=== PATIENT | male | born 1995 | race Caucasian/White ===

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

== ENCOUNTER 2017-07-24 08:28 | Emergency (ER) | payer OTHER ==
[2017-07-24 08:42] VITALS: BP 124/78; PULSE 94; TEMP 98
--- NOTE | 2017-07-24 09:22 | PDOC ---
History of Present Illness - General Chief Complaint: Foreign Body (FB) Stated Complaint: FOREIGN OBJECT IN EYE Time Seen by Provider: 07/24/17 09:12 History Source: Patient Exam Limitations: No Limitations - History of Present Illness Initial Comments: 07/24/17 09:17 CHIEF COMPLAINT: Foreign body sensation to right eye, right nasal congestion and right facial pain HISTORY OF PRESENT ILLNESS: Patient is a 21-year-old male, no significant medical history currently on no medication presents for right eye foreign body sensation, increased nasal congestion and right facial pain which started when he woke up this morning. No pain prior to going to sleep. Denies any trauma. Denies any foreign body in eye. Denies headache. REVIEW OF SYSTEMS: GENERAL/CONSTITUTIONAL: No fever or chills. No weakness. No weight change. HEAD, EYES, EARS, NOSE AND THROAT: No change in vision. Drainage and irritation to right eye. No ear pain or discharge. No sore throat. Right nasal congestion RESPIRATORY: No cough, wheezing, or hemoptysis. SKIN : No rash or easy bruising. NEUROLOGIC: No headache, vertigo, loss of consciousness, or loss of sensation. HEMATOLOGIC/LYMPHATIC: No lymphadenopathy ALLERGIC/IMMUNOLOGIC: No hives or skin allergy. No latex allergy. PHYSICAL EXAM: GENERAL: The patient is awake, alert, and fully oriented, in no acute distress. HEAD: Normal with no signs of trauma. Right frontal sinus pressure EYES: Pupils equal, round and reactive to light, extraocular movements intact, sclera anicteric, conjunctiva not injected, after fluorescein staining, no corneal abrasion noted. ENT: Ears normal, right nares is inflamed, increased drainage, oropharynx clear without exudates. Moist mucous membranes. Right frontal facial pressure NECK: Normal range of motion, supple without lymphadenopathy, JVD, or masses. LUNGS: Breath sounds equal, clear to auscultation bilaterally. No wheezes, and no crackles. NEUROLOGICAL: Cranial nerves II through XII grossly intact. Normal speech, normal gait. SKIN: No erythema no facial edema. Warm, Dry, normal turgor, no rashes or lesions noted. Past History - Past Medical History Allergies/Adverse Reactions: Allergies Allergy/AdvReac Type Severity Reaction Status Date / Time No Known Allergies Allergy Verified 07/24/17 08:42 Home Medications: Ambulatory Orders Amox-Tr/K Cl [Augmentin - 875Mg Tablet] 1 tab PO BID #14 tablet 07/24/17 Fluticasone Prop 0.05% Nasal [Flonase -] 1 - 2 spray NS DAILY #1 spray.pump Polymyxin B Sulf/Trimethoprim [Polymyxin B-Tmp Eye Drops] 1 drop OD QID #1 bottle 07/24/17 COPD: No - Immunization History TDAP Vaccination: Yes Immunization Up to Date: Yes - Suicide/Smoking/Psychosocial Hx Smoking Status: No Smoking History: Current every day smoker Have you smoked in the past 12 months: Yes Number of Cigarettes Smoked Daily: 10 Information on smoking cessation initiated: Yes 'Breaking Loose' booklet given: 07/24/17 Hx Alcohol Use: No Drug/Substance Use Hx: No Substance Use Type: None *Physical Exam - Vital Signs Last Vital Signs Temp Pulse Resp BP Pulse Ox 98 F 94 H 18 124/78 100 07/24/17 08:40 07/24/17 08:40 07/24/17 08:40 07/24/17 08:40 07/24/17 08:40 Medical Decision Making - Medical Decision Making 07/24/17 09:19 A/P: Patient with no clinical signs of foreign body to right eye, there is right frontal sinus pressure, increased nasal congestion, clinical signs of a sinusitis. Will discharge on Augmentin, polymyxin and Flonase. Follow-up with ENT if symptoms persist in 2 days. *DC/Admit/Observation/Transfer Diagnosis at time of Disposition: Sinusitis Qualifiers: Sinusitis location: frontal Chronicity: acute Recurrence: non-recurrent Qualified Code(s): J01.10 - Acute frontal sinusitis, unspecified - Discharge Dispostion Disposition: HOME Condition at time of disposition: Stable Admit: No - Prescriptions Prescriptions: Amox-Tr/K Cl [Augmentin - 875Mg Tablet] 1 tab PO BID #14 tablet Fluticasone Prop 0.05% Nasal [Flonase -] 1 - 2 spray NS DAILY #1 spray.pump Polymyxin B Sulf/Trimethoprim [Polymyxin B-Tmp Eye Drops] 1 drop OD QID #1 bottle - Referrals Referrals: Anil Rangel MD [Staff Physician] - Saul Kent [Staff Physician] - - Patient Instructions Printed Discharge Instructions: DI for Sinusitis Additional Instructions: If eye pain persists in 2 days follow-up with Dr. Kent If any fever, increased pain, or any other concerns return immediately to ER - Post Discharge Activity Forms/Work/School Notes: Back to Work
[2017-07-24] MEDS ORDERED: IBUPROFEN 600 MG TABLET (FP) PO ONE ×2 (09:25)
== END 2017-07-24 09:30 | disposition home or self-care (01) ==
LOC: JERFT 08:28
DX: J01.10 Acute frontal sinusitis, unspecified (principal)
CPT/HCPCS: 99281-25

== ENCOUNTER 2018-08-08 02:16 | Emergency (ER) | payer OTHER ==
[2018-08-08] MEDS ORDERED: DIPHTH,PERTUSS(ACELL),TET 0.5 ML DISP.SYRIN IM ONE ×2 (02:51→04:02)
[2018-08-08 03:06] VITALS: BP 106/59; PULSE 62; TEMP 97.5; BMI 20.9
--- NOTE | 2018-08-08 03:33 | PDOC ---
*Physical Exam - Vital Signs Last Vital Signs Temp Pulse Resp BP Pulse Ox 97.5 F L 62 18 106/59 L 99 08/08/18 02:16 08/08/18 02:16 08/08/18 02:16 08/08/18 02:16 08/08/18 02:16 Medical Decision Making - Medical Decision Making 08/08/18 03:33 Patient seen by the advanced practice provider under my direct supervision. Ancillary testing reviewed as necessary. I agree with plan as outlined by the advanced practice provider. *DC/Admit/Observation/Transfer - Discharge Dispostion Condition at time of disposition: Fair - Referrals - Patient Instructions - Post Discharge Activity
--- NOTE | 2018-08-08 03:50 | PDOC ---
History of Present Illness - General Stated Complaint: INJURY,MOUTH Time Seen by Provider: 08/08/18 02:46 History Source: Patient Exam Limitations: No Limitations - History of Present Illness Initial Comments: 08/08/18 03:44 HISTORY OF PRESENT ILLNESS: 22-year-old male denies medical history presents emergency department for evaluation of lip laceration. 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 Patient was concerned as there is heavy bleeding. He denies any loss of consciousness. Patient is unsure of his last tetanus shot. No recent travel or sick contacts. PAST MEDICAL HISTORY: Denies past medical history SURGICAL HISTORY: Denies ALLERGIES: No known drug allergies REVIEW OF SYSTEMS General/Constitutional: Denies fever or chills. Denies weakness, weight change. HEENT: see HPI Cardiovascular: Denies chest pain or shortness of breath. Respiratory: Denies cough, wheezing, or hemoptysis. Gastrointestinal: Denies nausea, vomiting, diarrhea or constipation. Denies rectal bleeding. Genitourinary: Denies dysuria, frequency, or change in urination. Musculoskeletal: Denies joint or muscle swelling or pain. Denies neck or back pain. Skin and breasts: Denies rash or easy bruising. Neurologic: Denies headache, vertigo, loss of consciousness, or loss of sensation. Psychiatric: Denies depression or anxiety. Endocrine: Denies increased thirst. Denies abnormal weight change. Hematologic/Lymphatic: Denies anemia, easy bleeding, or history of blood clots. Allergic/Immunologic: Denies hives or skin allergy. Denies latex allergy. PHYSICAL EXAM General Appearance: Well-appearing, appropriately dressed. No apparent distress , no intoxication. HEENT: EOMI, PERRLA, normal ENT inspection, normal voice, TMs normal, pharynx normal. No conjunctival pallor. No photophobia, scleral icterus. No loose teeth. 4.5 cm deep flap laceration present to the buccal surface of the right sided lower lip. Bleeding is well controlled. Full articulation of the mandible without difficulty. 2 abrasions present to the dry vermilion surface of the right sided lower lip. Neck: Supple. Trachea midline. No tenderness, rigidity, carotid bruit, stridor , lymphadenopathy, or thyromegaly. Respiratory/Chest: Lungs CTAB. No shortness of breath, chest tenderness, respiratory distress, accessory muscle use. No crackles, rales, rhonchi, stridor , wheezing, dullness Cardiovascular: RRR. S1, S2. No JVD, murmur, bradycardia, tachycardia. Vascular Pulses: Dorsalis-Pedis (R): 2+, Dorsalis-Pedis (L): 2+ Gastrointestinal/Abdominal: Normal bowel sounds. Abdomen soft, non-distended. No tenderness or rebound tenderness. No organomegaly, pulsatile mass, guarding, hernia, hepatomegaly, splenomegaly. Lymphatic: No adenopathy, tenderness. Musculoskeletal/Extremities: Normal inspection. FROM of all extremities, normal capillary refill. Pelvis Stable. No CVA tenderness. No tenderness to extremities, pedal edema, swelling, erythema or deformity. Integumentary: Appropriate color, dry, warm. No cyanosis, erythema, jaundice or rash Neurologic: functional manager II-XII intact. Fully oriented, alert. Appropriate mood/affect. Motor strength 5/5. No appreciable EOM palsy, facial droop or sensory deficit. 08/08/18 03:59 Past History - Past Medical History Allergies/Adverse Reactions: Allergies Allergy/AdvReac Type Severity Reaction Status Date / Time No Known Allergies Allergy Verified 08/08/18 03:06 Home Medications: Ambulatory Orders Fluticasone Prop 0.05% Nasal [Flonase -] 1 - 2 spray NS DAILY #1 spray.pump Polymyxin B Sulf/Trimethoprim [Polymyxin B-Tmp Eye Drops] 1 drop OD QID #1 bottle 07/24/17 Amox-Tr/K Cl [Augmentin 875-125mg Tablet -] 1 tab PO BID #14 tablet 08/08/18 Chlorhexidine Gluconate [Peridex -] 15 ml MM PC #1 bottle 08/08/18 COPD: No - Immunization History TDAP Vaccination: Yes Immunization Up to Date: Yes - Suicide/Smoking/Psychosocial Hx Smoking Status: No Smoking History: Never smoked Have you smoked in the past 12 months: No Number of Cigarettes Smoked Daily: 10 Information on smoking cessation initiated: No 'Breaking Loose' booklet given: 07/24/17 Hx Alcohol Use: Yes Drug/Substance Use Hx: No Substance Use Type: None *Physical Exam - Vital Signs Last Vital Signs Temp Pulse Resp BP Pulse Ox 97.5 F L 62 18 106/59 L 99 04/04/19 02:16 08/08/18 02:16 08/08/18 02:16 08/08/18 02:16 08/08/18 02:16 Procedures - Consent Consent obtained: Verbal, From Patient - Laceration/Wound Repair Right Lip Wound Length: 2.6 to 5.0 cm Wound Explored: clean Wound's Depth, Shape: into muscle, flap Irrigated w/ Saline: Yes Betadine Prep: No Anesthesia: 1% Lidocaine Amount of Anesthetic (ccs): 2 (mental) Wound Debrided: minimal Wound Repaired With: Sutures Suture Size/Type: 5:0, other Number of Sutures: 4 (gut) Layer Closure: Yes Deep Layer Suture Size/Type: 4:0, other (monosorb) Number of Deep Layer Sutures: 2 Sterile Dressing Applied: No Splint Applied: No Sling Applied: No Progress: 08/08/18 03:47 pt tolerated well. Medical Decision Making - Medical Decision Making 08/08/18 03:48 A/P: 22-year-old male with laceration to the buccal surface of the lower lip 4.5 cm deep flap laceration to right buccal surface of the lower lip. Laceration is not through and through No neurosensory deficits No loose teeth 2 abrasions present to the outer vermilion surface of the right sided lower lip Full articulation of the mandible without difficulty. Laceration repair-see procedure note for details Boostrix Discharge home with prescription for Peridex *DC/Admit/Observation/Transfer Diagnosis at time of Disposition: Laceration of buccal mucosa Qualifiers: Encounter type: initial encounter Qualified Code(s): S01.512A - Laceration without foreign body of oral cavity, initial encounter - Discharge Dispostion Disposition: HOME Condition at time of disposition: Stable Decision to Admit order: No - Prescriptions Prescriptions: Amox-Tr/K Cl [Augmentin 875-125mg Tablet -] 1 tab PO BID #14 tablet Chlorhexidine Gluconate [Peridex -] 15 ml MM PC #1 bottle - Referrals - Patient Instructions Additional Instructions: Eat soft foods for 2-3 days. Rinse mouth with Peridex after eating, drinking or smoking. Avoid spicy or salty foods until the wound is fully healed. Do not use straws. Take Augmentin 875 mg twice a day for the next 7 days. Wound should heal rapidly within 3-5 days. Absorbable sutures were placed which may remain for up to 2 weeks. At that time you may remove using tweezers. Your tetanus shot has been updated today. Return to emergency department for worsening pain, fevers, discharge or drainage from the wounds, or for any other concerns. Thank you very much for choosing us to provide your emergent health care needs. - Post Discharge Activity Forms/Work/School Notes: Back to Work
== END 2018-08-08 04:45 | disposition home or self-care (01) ==
LOC: JER 02:16
PROC: 0CQ13ZZ Repair Lower Lip, Percutaneous Approach (ICD-10-PCS; principal; 2018-08-08)
PROC: 3E0234Z Introduction of Serum, Toxoid and Vaccine into Muscle, Percutaneous Approach (ICD-10-PCS; 2018-08-08)
DX: S01.511A Laceration without foreign body of lip, initial encounter (principal); S01.512A Laceration without foreign body of oral cavity, initial encounter; W22.8XXA Striking against or struck by other objects, initial encounter; Y93.89 Activity, other specified; Y92.89 Other specified places as the place of occurrence of the external cause; Y99.0 Civilian activity done for income or pay
CPT/HCPCS: 90715; 99282-25

== ENCOUNTER 2019-04-26 19:41 | Emergency (ER) | payer OTHER ==
[2019-04-26 19:53] VITALS: BP 167/71; PULSE 100; TEMP 98; BMI 19.5
[2019-04-26] MEDS ORDERED: TETANUS AND DIPHTHERIA TOXOID 0.5 ML DISP.SYRIN IM ONE (20:54)
[2019-04-26] MEDS ORDERED: IBUPROFEN 600 MG TABLET (FP) PO ONE ×2 (20:55→21:08)
--- NOTE | 2019-04-26 20:58 | PDOC ---
History of Present Illness - General Chief Complaint: Injury Stated Complaint: HAND INJURY History Source: Patient Exam Limitations: No Limitations - History of Present Illness Initial Comments: 04/26/19 20:55 Patient is a 23-year-old male with no past medical history here with complaints of left hand pain times few hours. States that he was drilling and drilled through his hand. States pain now 8/10 which is worse with extension of the fingers. Worst pain is over the middle finger metacarpal. Tetanus is unknown. PMD: Dr. Urbina PMHX: neg PSOCHX: ALL: NKDA GENERAL/CONSTITUTIONAL: [No fever or chills. No weakness. No weight change.] MUSCULOSKELETAL: [(+)joint or muscle swelling or pain. No neck or back pain.] SKIN AND BREASTS: [No rash or easy bruising.] ALLERGIC/IMMUNOLOGIC: [No hives or skin allergy. No latex allergy.] GENERAL: [The patient is awake, alert, and fully oriented, in mild painful distress.] EYES: [Pupils equal, round and reactive to light, extraocular movements intact, sclera anicteric, conjunctiva clear.] EXTREMITIES: [Decreased range of motion left hand to extension, (+) swelling and tenderness over the left 3rd and 4th knuckle. No clubbing or cyanosis. No cords, erythema, or tenderness.] NEUROLOGICAL: [Cranial nerves II through XII grossly intact. Normal speech, normal gait.] SKIN: [(+) ecchymosis over posterior aspect of the knuckles of third and fourth Past History - Past Medical History Allergies/Adverse Reactions: Allergies Allergy/AdvReac Type Severity Reaction Status Date / Time No Known Allergies Allergy Verified 04/26/19 19:53 Home Medications: Ambulatory Orders Fluticasone Prop 0.05% Nasal [Flonase -] 1 - 2 spray NS DAILY #1 spray.pump Polymyxin B Sulf/Trimethoprim [Polymyxin B-Tmp Eye Drops] 1 drop OD QID #1 bottle 07/24/17 Amox-Tr/K Cl [Augmentin 875-125mg Tablet -] 1 tab PO BID #14 tablet 08/08/18 Chlorhexidine Gluconate [Peridex -] 15 ml MM PC #1 bottle 08/08/18 Amoxicillin/Potassium Clav [Augmentin 875-125 Tablet] 1 each PO BID #14 tablet 04/26/19 COPD: No Other medical history: chronic back problems - Immunization History Td Vaccination: Yes TDAP Vaccination: Yes Immunization Up to Date: No - Psycho Social/Smoking Cessation Hx Smoking Status: No Smoking History: Current every day smoker Have you smoked in the past 12 months: No Number of Cigarettes Smoked Daily: 10 Information on smoking cessation initiated: No 'Breaking Loose' booklet given: 07/24/17 Hx Alcohol Use: Yes Drug/Substance Use Hx: No Substance Use Type: None *Physical Exam - Vital Signs Last Vital Signs Temp Pulse Resp BP Pulse Ox 98 F 100 H 18 167/71 99 04/26/19 19:48 04/26/19 19:48 04/26/19 19:48 04/26/19 19:48 04/26/19 19:48 ED Treatment Course - RADIOLOGY Radiology Studies Ordered: Category Date Time Status HAND- LEFT [RAD] Stat Radiology 04/26/19 20:54 Ordered Medical Decision Making - Medical Decision Making 04/26/19 20:55 Patient is a 23-year-old male with no past medical history here with complaints of left hand pain times few hours. States that he was drilling and drilled through his hand. States pain now 8/10 which is worse with extension of the fingers. Worst pain is over the middle finger metacarpal. Tetanus is unknown. Penetrating injury to the left hand X-ray left hand rule out foreign body bone involvement Tetanus vaccine Augmentin Sling I discussed the physical exam findings, ancillary test results and final diagnoses with the patient. I answered all of the patient's questions. The patient was satisfied with the care received and felt comfortable with the discharge plan and treatment plan. The Patient agrees to follow up with the primary care physician within 24-72 hours. Discharge - Discharge Information Problems reviewed: Yes Clinical Impression/Diagnosis: Puncture wound, hand Qualifiers: Encounter type: initial encounter Foreign body presence: without foreign body Laterality: left Qualified Code(s): S61.432A - Puncture wound without foreign body of left hand, initial encounter Condition: Stable Disposition: HOME - Additional Discharge Information Prescriptions: Amoxicillin/Potassium Clav [Augmentin 875-125 Tablet] 1 each PO BID #14 tablet - Follow up/Referral Referrals: Mayo Gale MD [Staff Physician] - - Patient Discharge Instructions Additional Instructions: Your Discharge Instructions: You must call primary care physician within 24 hours to arrange follow-up. Return to the Emergency Department with any new, persistent or worsening symptoms, for fever, chills, SOB, dizziness or any other concerning changes that may occur. Continue the antibiotics as prescribed. Watch for signs of infection which include redness, streaking, increased pain discharge from the wound. Keep the hand in a splint and in a sling until seen by orthopedist. - Post Discharge Activity
[2019-04-26] MEDS ORDERED: AMOX TR/POT CLAV 875MG/125MG TABLETS (FP) PO ONE (21:06)
[2019-04-26] MEDS ORDERED: LIDOCAINE HCL/PF 1% SDV 5ML VIAL ONE (21:17)
[2019-04-26] MEDS ORDERED: LIDOCAINE HCL 2% (20ML MULTI-DOSE VIAL) ONE (21:17)
[2019-04-26] MEDS ORDERED: LIDOCAINE HCL 1% PRESERVATIVE FREE - 30ML VIAL IJ ONE (21:18)
[2019-04-26] MEDS ORDERED: AMOX TR/POT CLAV 875MG/125MG TABLETS (FP) ONE (21:49)
== END 2019-04-26 22:12 | disposition home or self-care (01) ==
LOC: JERFT 19:41
PROC: 3E0234Z Introduction of Serum, Toxoid and Vaccine into Muscle, Percutaneous Approach (ICD-10-PCS; principal; 2019-04-26)
DX: S61.432A Puncture wound without foreign body of left hand, initial encounter (principal); W29.8XXA Contact with other powered hand tools and household machinery, initial encounter; W31.1XXA Contact with metalworking machines, initial encounter; Y93.89 Activity, other specified; Y92.89 Other specified places as the place of occurrence of the external cause; Y99.8 Other external cause status
CPT/HCPCS: 73130-TC-LT-FY; 99281-25

== ENCOUNTER 2019-08-11 00:47 | Emergency (ER) | payer OTHER | END 2019-08-11 02:44 | disposition home or self-care (01) | LOC: JER 00:47 | PROC: 09QKXZZ Repair Nasal Mucosa and Soft Tissue, External Approach (ICD-10-PCS; principal; 2019-08-11) | CPT/HCPCS: 99284-25 ==

== ENCOUNTER 2020-02-05 10:46 | Emergency (ER) | payer OTHER ==
[2020-02-05 10:55] VITALS: BP 126/63; PULSE 68; TEMP 98; BMI 220.4
[2020-02-05] MEDS ORDERED: TETRACAINE 0.5% HCL 0.6ML DROPPER.BOTTLE OS ONE (11:05)
[2020-02-05] MEDS ORDERED: FLUORESCEIN NA 1 EA STRIP OS ONE (11:05)
[2020-02-05] MEDS ORDERED: FLUORESCEIN NA 1 EA STRIP ONE (11:09)
--- NOTE | 2020-02-05 11:18 | PDOC ---
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 Patient reported going to [facility] urgent care in [place] and was advised to come to the emergency room as nothing was seen on exam and it was advised he might need imaging of the eye. Denies blurry vision or change in vision. Denies any other symptoms Is this a multiple visit Asthma Patient?: No Timing/Duration: 24 hours Past History - Medical History Allergies/Adverse Reactions: Allergies Allergy/AdvReac Type Severity Reaction Status Date / Time No Known Allergies Allergy Verified 02/05/20 10:47 Home Medications: Ambulatory Orders Fluticasone Prop 0.05% Nasal [Flonase -] 1 - 2 spray NS DAILY #1 spray.pump 07/24/17 Polymyxin B Sulf/Trimethoprim [Polymyxin B-Tmp Eye Drops] 1 drop OD QID #1 bottle 07/24/17 Amox-Tr/K Cl [Augmentin 875-125mg Tablet -] 1 tab PO BID #14 tablet 08/08/18 Chlorhexidine Gluconate [Peridex -] 15 ml MM PC #1 bottle 08/08/18 Amoxicillin/Potassium Clav [Augmentin 875-125 Tablet] 1 each PO BID #14 tablet 04/26/19 COPD: No - Immunization History Td Vaccination: Yes TDAP Vaccination: Yes Immunization Up to Date: No - Psycho-Social/Smoking History Smoking Status: No Smoking History: Current every day smoker Have you smoked in the past 12 months: Yes Number of Cigarettes Smoked Daily: 20 Information on smoking cessation initiated: Yes 'Breaking Loose' booklet given: 07/24/17 - Substance Abuse Hx (Audit-C & DAST Scrn) How often the patient has a drink containing alcohol: Monthly or less Number of drinks the patient has on a typical day: 1 or 2 How often the patient has six or more drinks on one occasion: Never Score: In Men: 4 or > Positive; In Women: 3 or > Positive: 1 Screen Result (Pos requires Nsg. Audit-10AR): Negative In the last yr the pt used illegal drug/Rx for NonMed reason: No Score: Yes response is considered Positive: 0 Screen Result (Positive result requires Nsg. DAST-10): Negative Review of Systems - Review of Systems Able to Perform ROS?: Yes Is the patient limited Guyanese proficient: No Constitutional: No: Chills, Fever, Malaise HEENTM: Yes: Symptoms Reported, Eye Pain (left eye pain). No: See HPI, Blurred Vision, Tearing, Recent change in vision, Double Vision, Cataracts, Ear Pain, Ocular Prothesis, Ear Discharge, Nose Pain, Nose Congestion, Tinnitus, Nose Bleeding, Hearing Loss, Throat Pain, Throat Swelling, Mouth Pain, Dental Problems, Difficulty Swallowing, Mouth Swelling, Other Respiratory: No: Symptoms reported, See HPI, Cough, Orthopnea, Shortness of Breath, SOB with Exertion, SOB at Rest, Stridor, Wheezing, Productive cough, Hemoptysis, Other Cardiac (ROS): No: Symptoms Reported, See HPI, Chest Pain, Edema, Irregular Heart Rate, Lightheadedness, Palpitations, Syncope, Chest Tightness, Other ABD/GI: No: Symptoms Reported, Nausea, Vomiting Integumentary: No: Symptoms Reported, See HPI, Erythema Neurological: No: Symptoms reported, Headache, Dizziness All Other Systems: Reviewed and Negative *Physical Exam - Vital Signs Last Vital Signs Temp Pulse Resp BP Pulse Ox 98 F 68 16 126/63 100 02/05/20 10:48 02/05/20 10:48 02/05/20 10:48 02/05/20 10:48 02/05/20 10:48 - Physical Exam 02/05/20 11:55 GENERAL: Well developed, well nourished. Awake and alert. No acute distress. HEENT: mild injected left conjunctival otherwise unremarkable exam. Pupil equal and reflective to light bilateral. Extraocular muscle intact. No foreign body seen on exam with fluorescein stain and tetracaine. Normal vision on visual acuity with 20/20 vision in bilateral eye. Normocephalic, atraumatic. No conjunctival pallor. Sclera are non-icteric. Moist mucous membranes. Oropharynx is clear. NECK: Supple. Full ROM. PULMONARY: No evidence of respiratory distress. MUSCULOSKELETAL Normal range of motion at all joints. SKIN: Warm and dry. Normal capillary refill. No swelling or ecchymosis or erythema to bilateral eyelids. NEUROLOGICAL: Alert, awake, appropriate. Gait is normal without ataxia. PSYCHIATRIC: Cooperative. Good eye contact. Appropriate mood General Appearance: Yes: Nourished, Appropriately Dressed. 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 Patient reported going to [facility] urgent care in [place] and was advised to come to the emergency room as nothing was seen on exam and it was advised he might need imaging of the eye. Denies blurry vision or change in vision. Denies any other symptoms Clinical exam significant for mild injected left conjunctival otherwise unremarkable exam. Pupil equal and reflective to light bilateral. Extraocular muscle intact. No foreign body seen on exam with fluorescein stain and tetracaine. Normal vision on visual acuity with 20/20 vision in bilateral eye. Left eye irrigated and eyewash station. Patient tolerated procedure well. Pat era report improvement of eye pain. Patient stable for discharge with ophthalmology follow-up and able to make a follow-up with Dr. Arturo Patrick in an hour and was advised patient to come to the ophthalmology office now to be seen. Patient stable for discharge and left department without complication Discharge - Discharge Information Problems reviewed: Yes Clinical Impression/Diagnosis: Foreign body accidentally entering eye and adnexa Condition: Stable Disposition: HOME - Admission No - Follow up/Referral Referrals: Fernando Brown [Staff Physician] - ( go to this visit [address] [address]) - Patient Discharge Instructions Patient Printed Discharge Instructions: DI for Corneal Foreign Body-Eye Additional Instructions: No foreign body was seen in left eye and there is no cut on the eye. Follow-up referred ophthalmology as instructed go to this visit [address] [address] - Post Discharge Activity
== END 2020-02-05 11:51 | disposition home or self-care (01) ==
LOC: JERFT 10:46 → JER 10:46 → JERFT 11:51
DX: T15.01XA Foreign body in cornea, right eye, initial encounter (principal)
CPT/HCPCS: 99284-25

== ENCOUNTER 2020-02-05 21:35 | Emergency (ER) | payer OTHER ==
[2020-02-05 21:40] VITALS: BP 112/52; PULSE 82; TEMP 97.8; BMI 22.9
[2020-02-05] MEDS ORDERED: TETRACAINE 0.5% HCL 0.6ML DROPPER.BOTTLE OS ONE (22:17)
[2020-02-05] MEDS ORDERED: TETRACAINE 0.5% OPHTH SOLN 2 ML BOTTLE ONE (22:19)
--- NOTE | 2020-02-05 22:49 | PDOC ---
History of Present Illness - General Chief Complaint: Eye Problem Stated Complaint: CONTACT LENS REMOVAL Time Seen by Provider: 02/05/20 21:41 History Source: Patient Exam Limitations: No Limitations Past History - Travel History Traveled outside of the country in the last 30 days: No Close contact w/someone who was outside of country & ill: No - Medical History Allergies/Adverse Reactions: Allergies Allergy/AdvReac Type Severity Reaction Status Date / Time No Known Allergies Allergy Verified 02/05/20 10:47 Home Medications: Ambulatory Orders Fluticasone Prop 0.05% Nasal [Flonase -] 1 - 2 spray NS DAILY #1 spray.pump 07/24/17 Polymyxin B Sulf/Trimethoprim [Polymyxin B-Tmp Eye Drops] 1 drop OD QID #1 bottle 07/24/17 Amox-Tr/K Cl [Augmentin 875-125mg Tablet -] 1 tab PO BID #14 tablet 08/08/18 Chlorhexidine Gluconate [Peridex -] 15 ml MM PC #1 bottle 08/08/18 Amoxicillin/Potassium Clav [Augmentin 875-125 Tablet] 1 each PO BID #14 tablet 04/26/19 COPD: No - Immunization History Td Vaccination: Yes TDAP Vaccination: Yes Immunization Up to Date: No - Psycho-Social/Smoking History Smoking Status: No Smoking History: Never smoked Have you smoked in the past 12 months: No Number of Cigarettes Smoked Daily: 20 'Breaking Loose' booklet given: 07/24/17 - Substance Abuse Hx (Audit-C & DAST Scrn) How often the patient has a drink containing alcohol: Never Score: In Men: 4 or > Positive; In Women: 3 or > Positive: 0 Screen Result (Pos requires Nsg. Audit-10AR): Negative In the last yr the pt used illegal drug/Rx for NonMed reason: No Score: Yes response is considered Positive: 0 Screen Result (Positive result requires Nsg. DAST-10): Negative Review of Systems - Review of Systems Able to Perform ROS?: Yes Comments:: 02/05/20 23:29 CONSTITUTIONAL: Absent: fever, chills, diaphoresis, generalized weakness, malaise, loss of appetite HEENT: Present: L eye pain Absent: rhinorrhea, nasal congestion, throat pain, throat swelling, difficulty swallowing, mouth swelling, ear pain, visual Changes SKIN: Absent: rash, itching, pallor NEUROLOGIC: Absent: headache, focal weakness or paresthesias, dizziness, unsteady gait, seizure, mental status changes, bladder or bowel incontinence PSYCHIATRIC: Absent: anxiety, depression, suicidal or homicidal ideation, hallucinations. Is the patient limited Greenlandic proficient: No *Physical Exam - Vital Signs Last Vital Signs Temp Pulse Resp BP Pulse Ox 97.8 F 82 19 112/52 L 98 02/05/20 21:37 02/05/20 21:37 02/05/20 21:37 02/05/20 21:37 02/05/20 21:37 - Physical Exam 02/05/20 23:30 GENERAL: The patient is awake, alert, and fully oriented, in no acute distress. HEAD: Normal with no signs of trauma. EYES: Left pupil dilated, minimally reactive. Contact in place over the left eye. R pupil round and reactive to light, extraocular movements intact, sclera anicteric, conjunctiva clear. EXTREMITIES: Normal range of motion, no edema. NEUROLOGICAL: Normal speech, normal gait. PSYCH: Normal mood, normal affect. SKIN: Warm, Dry, normal turgor, no rashes or lesions noted. ED Treatment Course - Medications Given in the ED: ED Medications Discontinued Medications Generic Name Dose Route Start Last Admin Trade Name Freq PRN Reason Stop Dose Admin Tetracaine HCl 1 drop 02/05/20 22:17 02/05/20 22:22 Tetravisc 0.5% Eye Drops - OS 02/05/20 22:18 1 drop ONCE ONE Administration Medical Decision Making - Medical Decision Making 02/05/20 23:31 Patient is a 24-year-old male who presents the ER with left eye pain. He was seen in this ER earlier today diagnosed with a corneal bridge and sent to ophthalmology. He states that they put a contact lens over his eye. He also states that it a full eye work-up including plain dilating drops in his eye. He states that he is unsure if he should sleep with the contact as he is worried it will get infected. He does note that he was given multiple drops including antibiotic drops. He is asking to have the contact removed. A/P: Eye pain Per patient request contact lens was removed. Patient states that his eye is now hurting more with the contact out is requesting to have it put back in. The lens was cleaned with normal saline and then placed back in the eye after receiving a tetracaine drop. Discharge to home home with ophthalmology tomorrow. Return precautions given I discussed the physical exam findings, ancillary test results and final diagnoses with the patient. I answered all of the patient's questions. The patient was satisfied with the care received and felt comfortable with the discharge plan and treatment plan. The Patient agrees to follow up with the primary care physician/specialist within 24-72 hours. Return precautions were given. Discharge - Discharge Information Problems reviewed: Yes Clinical Impression/Diagnosis: Eye pain Qualifiers: Laterality: left Qualified Code(s): H57.12 - Ocular pain, left eye Condition: Stable Disposition: HOME - Admission No - Follow up/Referral - Patient Discharge Instructions Additional Instructions: You can sleep with with that contact in. Use moisturizer in the contact when you wake up in the morning Use all the eye drops as previously prescribed. Follow up with your eye doctor tomorrow as planned. - Post Discharge Activity
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
== END 2020-02-05 22:27 | disposition home or self-care (01) ==
LOC: JER 21:35 → JERFT 21:35
DX: H57.12 Ocular pain, left eye (principal)
CPT/HCPCS: 99283-25

== ENCOUNTER 2021-11-08 16:58 | Emergency (ER) | payer OTHER ==
[2021-11-08] MEDS ORDERED: DIPHTH,PERTUSS(ACELL),TET 0.5 ML DISP.SYRIN IM ONE ×2 (17:07→17:55)
[2021-11-08] MEDS ORDERED: morphine CARPU-JECT 4 MG/1 ML DISP.SYRIN IVPUSH ONE (17:07)
[2021-11-08] MEDS ORDERED: morphine SULFATE 4 MG/ML VIAL IVPUSH ONE ×2 (17:07→17:21)
[2021-11-08] MEDS ORDERED: CEFAZOLIN 1 GM/D5W 1 GM/50 ML BAG IVPB ONE (17:07)
[2021-11-08] MEDS ORDERED: SODIUM CHLORIDE 0.9% 500 ML INFUS.BAG IV ONE (17:10)
[2021-11-08 17:22] VITALS: PULSE 99; BMI 19.3
[2021-11-08 17:47] LABS: BASO % 0.9 % (0-2.0); EOS % 1.7 % (0-4.5); HEMATOCRIT 43.5 % (35.4-49); HEMOGLOBIN 14.7 GM/dL (11.7-16.9); MCH 29.2 pg (25.7-33.7); MCHC 33.8 g/dl (32.0-35.9); MEAN CELL VOLUME 86.2 fl (80-96); MEAN PLT VOLUME 7.9 fl (7.5-11.1); MONO % 6.5 % (3.8-10.2); NEUT % 66.9 % (42.8-82.8); PLATELET COUNT 358 10^3/uL (134-434); RBC 5.05 M/mm3 (4.00-5.60); RDW 13.4 % (11.9-15.9); WHITE BLOOD COUNT 8.1 K/mm3 (4.0-10.0)
[2021-11-08 17:53] LABS: INR 1.01 (0.83-1.09); PROTHROMBIN TIME (PATIENT) 11.6 SEC (9.7-13.0)
[2021-11-08] MEDS ORDERED: ceFAZolin SODIUM 1 GM VIAL ONE (17:55)
[2021-11-08 17:56] LABS: ACTIVATED PTT 29.8 SECONDS (25.2-36.5)
[2021-11-08 18:11] LABS: CALCIUM 9.6 mg/dL (8.5-10.1)
[2021-11-08 18:12] LABS: ALBUMIN 4.7 g/dl (3.4-5.0); BLOOD UREA NITROGEN 12.6 mg/dL (7-18)
[2021-11-08 18:15] LABS: CREATININE 1.3 mg/dL (0.55-1.3)
[2021-11-08 18:16] LABS: TOT PROT 7.7 g/dl (6.4-8.2)
[2021-11-08 18:17] LABS: BILIRUBIN,TOTAL 0.6 mg/dL (0.2-1)
[2021-11-08 19:30] VITALS: BP 127/67; TEMP 98
== END 2021-11-08 19:58 | disposition short-term general hospital (02) ==
LOC: JER 16:58
PROC: 3E03329 Introduction of Other Anti-infective into Peripheral Vein, Percutaneous Approach (ICD-10-PCS; principal; 2021-11-08)
PROC: 3E033NZ Introduction of Analgesics, Hypnotics, Sedatives into Peripheral Vein, Percutaneous Approach (ICD-10-PCS; 2021-11-08)
PROC: 3E033NZ Introduction of Analgesics, Hypnotics, Sedatives into Peripheral Vein, Percutaneous Approach (ICD-10-PCS; 2021-11-08)
PROC: 3E033NZ Introduction of Analgesics, Hypnotics, Sedatives into Peripheral Vein, Percutaneous Approach (ICD-10-PCS; 2021-11-08)
DX: S68.611A Complete traumatic transphalangeal amputation of left index finger, initial encounter (principal); W29.8XXA Contact with other powered hand tools and household machinery, initial encounter; V28.0XXA Motorcycle driver injured in noncollision transport accident in nontraffic accident, initial encounter
CPT/HCPCS: 0241U-QW; 36415; 73130-TC-LT-FY; 80053; 85025; 85610; 85730; 86850; 86900; 86901; 90471; 90715; 96374; 96375; 96376; 99284-25

== ENCOUNTER 2021-12-14 13:47 | Emergency (ER) | payer OTHER ==
[2021-12-14 14:04] VITALS: BP 148/70; PULSE 93; RESP 18; TEMP 97.8; BMI 25.8
[2021-12-14] MEDS ORDERED: ACETAMINOPHEN 500 MG TABLET (FP) PO ONE (14:23)
[2021-12-14] MEDS ORDERED: BACITRACIN 15 GM TUBE TOPICAL OINTMENT TP ONE (14:34)
== END 2021-12-14 14:36 | disposition home or self-care (01) ==
LOC: JERFT 13:47
DX: S60.411A Abrasion of left index finger, initial encounter (principal)
CPT/HCPCS: 99283-25

== ENCOUNTER 2022-10-26 21:52 | Emergency (ER) | payer OTHER ==
[2022-10-26 22:01] VITALS: RESP 18; BMI 22.9
[2022-10-26 22:35] LABS: BASO % 0.2 % (0-2.0); EOS % 0.3 % (0-4.5); HEMATOCRIT 35.2 % (35.4-49); HEMOGLOBIN 11.6 GM/dL (11.7-16.9); LYMPH % 10.4 % (8-40); MCH 27.7 pg (25.7-33.7); MCHC 33.1 g/dl (32.0-35.9); MEAN CELL VOLUME 83.7 fl (80-96); MEAN PLT VOLUME 7.4 fl (7.5-11.1); MONO % 6.2 % (3.8-10.2); NEUT % 82.9 % (42.8-82.8); PLATELET COUNT 316 10^3/uL (134-434); RDW 13.5 % (11.9-15.9); WHITE BLOOD COUNT 13.3 K/mm3 (4.0-10.0)
[2022-10-26 22:55] LABS: CHLORIDE 106 mmol/L (98-107); SODIUM 141 mmol/L (136-145)
[2022-10-26 22:57] LABS: CALCIUM 9.1 mg/dL (8.5-10.1)
[2022-10-26 22:58] LABS: ALBUMIN 3.8 g/dl (3.4-5.0); ANION GAP 7 MMOL/L (8-16); BLOOD UREA NITROGEN 9.3 mg/dL (7-18); CO2 28 mmol/L (21-32); GLUCOSE,RANDOM 85 mg/dL (74-106)
[2022-10-26 23:01] LABS: CREATININE 1.1 mg/dL (0.55-1.3); SGOT/AST 58 U/L (15-37); SGPT/ALT 69 U/L (13-61)
[2022-10-26 23:02] LABS: BILIRUBIN,TOTAL 0.4 mg/dL (0.2-1)
[2022-10-26 23:03] LABS: TOT PROT 7.2 g/dl (6.4-8.2)
[2022-10-26 23:04] LABS: ALK PHOS 66 U/L (45-117)
[2022-10-26 23:43] LABS: PHENCYCLIDINE,URINE NEGATIVE (NEGATIVE)
[2022-10-26 23:44] LABS: COCAINE, UR NEGATIVE (NEGATIVE); OPIATES, URI NEGATIVE (NEGATIVE); URINE AMPHETAMINES NEGATIVE (NEGATIVE); URINE BARBITURATES NEGATIVE (NEGATIVE)
[2022-10-27 00:27] LABS: METHADONE, UR POSITIVE (NEGATIVE); URINE BENZODIAZEPINES POSITIVE (NEGATIVE)
[2022-10-27 08:48] VITALS: BP 128/76; PULSE 87; TEMP 98.3
== END 2022-10-27 13:30 | disposition home or self-care (01) ==
LOC: JER 21:52
DX: R45.851 Suicidal ideations (principal); F19.90 Other psychoactive substance use, unspecified, uncomplicated
CPT/HCPCS: 36415; 80053; 80307; 84443; 85025; 93005; 93010; 99284-25

== ENCOUNTER 2022-11-09 10:53 | Emergency (ER) | payer OTHER ==
[2022-11-09] MEDS ORDERED: HALOPERIDOL LACTATE 5 MG/ML IM ONE ×2 (10:59→11:08)
[2022-11-09] MEDS ORDERED: KETAMINE HCL 200 MG/20 ML VIAL ONE (11:13)
[2022-11-09] MEDS ORDERED: KETAMINE HCL 200 MG/20 ML VIAL IVPUSH ONE (11:17)
[2022-11-09 11:52] VITALS: BMI 24.3
[2022-11-09 12:03] LABS: VENOUS BASE EXCESS 1.4 mmol/L (-2-2); VENOUS O2 SATURATION 89.4 % (70-80); VENOUS PCO2 38.8 mmHg (38-52); VENOUS PH 7.437 (7.310-7.410)
[2022-11-09 12:23] LABS: BASO % 0.6 % (0-2.0); EOS % 2.5 % (0-4.5); HEMATOCRIT 40.2 % (35.4-49); HEMOGLOBIN 13.3 GM/dL (11.7-16.9); INR 1.08 (0.83-1.09); LYMPH % 34.5 % (8-40); MCH 27.8 pg (25.7-33.7); MCHC 33.1 g/dl (32.0-35.9); MEAN CELL VOLUME 83.8 fl (80-96); MEAN PLT VOLUME 7.6 fl (7.5-11.1); MONO % 6.8 % (3.8-10.2); NEUT % 55.6 % (42.8-82.8); PLATELET COUNT 288 10^3/uL (134-434); PROTHROMBIN TIME (PATIENT) 12.5 SEC (9.7-13.0); WHITE BLOOD COUNT 10.4 K/mm3 (4.0-10.0)
[2022-11-09 12:26] LABS: ACTIVATED PTT 33.3 SECONDS (25.2-36.5)
[2022-11-09] MEDS ORDERED: SODIUM CHLORIDE 0.9% 500 ML INFUS.BAG IV ONE (12:30)
[2022-11-09 13:15] LABS: CHLORIDE 103 mmol/L (98-107); POTASSIUM 3.8 mmol/L (3.5-5.1); SODIUM 141 mmol/L (136-145)
[2022-11-09 13:17] LABS: ALBUMIN 4.3 g/dl (3.4-5.0); ANION GAP 9 MMOL/L (8-16); CALCIUM 10.1 mg/dL (8.5-10.1); CO2 29 mmol/L (21-32)
[2022-11-09 13:18] LABS: GLUCOSE,RANDOM 74 mg/dL (74-106)
[2022-11-09 13:21] LABS: CREATININE 1.1 mg/dL (0.55-1.3); SGOT/AST 18 U/L (15-37); SGPT/ALT 22 U/L (13-61)
[2022-11-09 13:22] LABS: BILIRUBIN,TOTAL 0.6 mg/dL (0.2-1); TOT PROT 7.6 g/dl (6.4-8.2)
[2022-11-09 13:23] LABS: ALK PHOS 73 U/L (45-117)
[2022-11-09 15:47] VITALS: BP 91/47; PULSE 56; RESP 18; TEMP 97.5
== END 2022-11-09 19:59 | disposition home or self-care (01) ==
LOC: JER 10:53
PROC: 3E033GC Introduction of Other Therapeutic Substance into Peripheral Vein, Percutaneous Approach (ICD-10-PCS; principal; 2022-11-09)
PROC: 3E023GC Introduction of Other Therapeutic Substance into Muscle, Percutaneous Approach (ICD-10-PCS; 2022-11-09)
DX: T40.2X1A Poisoning by other opioids, accidental (unintentional), initial encounter (principal); R45.1 Restlessness and agitation
CPT/HCPCS: 36415; 70450-TC; 80053; 80307; 82803; 83605; 84439; 84443; 85025; 85610; 85730; 87040; 93005; 93010; 99285-25